=== PATIENT | female | born 1975 | race Caucasian/White ===

== ENCOUNTER 2018-11-29 12:07 | Emergency (ER) | payer MEDICAID ==
[~2018-11-29] VITALS: Ht 162.6 cm; Wt 83.2 kg
[2018-11-29 12:11] VITALS: Ht 162.6 cm; Wt 83.2 kg
[2018-11-29] MEDS ORDERED: TRAZODONE HCL150 MG PO (12:12)
[2018-11-29] MEDS ORDERED: ALBUTEROL SULF8.5 GM INH (12:13)
[2018-11-29] MEDS ORDERED: CYCLOBENZAPRINE10 MG PO (12:13)
[2018-11-29] MEDS ORDERED: LITHIUM CARBON300 MG PO (12:13)
[2018-11-29 12:35] LABS: BASOPHILS 0.3 % (0-2); EOSINOPHILS 0.7 % (0-7); HEMATOCRIT 37.7 % (36.0-48.0); HEMOGLOBIN 12.2 g/dL (12-16); IMMATURE GRANULOCYTES 0.1 % (0-5); LYMPHOCYTES 15.2 % (15-50); MCH 27.3 pg (26.0-34.0); MCHC 32.4 g/dL (31.0-37.0); MCV 84.3 fL (80.0-100.0); MEAN PLATELET VOLUME 10.7 fL (7.4-10.4); MONOCYTES 6.2 % (2-11); NEUTROPHILS 77.5 % (40-80); RBC 4.47 10x6/uL (4.00-5.40); RDW 14.1 % (11.5-14.5); WBC 9.9 10x3/uL (4.8-10.8)
[2018-11-29 12:43] LABS: PLATELET COUNT 261 10x3/uL (130-400)
[2018-11-29 12:55] LABS: ALBUMIN 3.9 g/dL (3.4-5.0); ALKALINE PHOSPHATASE 73 U/L (46-116); ALT (SGPT) 37 U/L (10-68); BILIRUBIN - TOTAL 0.29 mg/dL (0.2-1.3); CALC OSMOLALITY 282 mosm/kg (275-300); CALCIUM 8.9 mg/dL (8.5-10.1); CARBON DIOXIDE 26.4 mmol/L (21.0-32.0); CHLORIDE - SERUM 107 mmol/L (98-107); CREATININE - SERUM 1.1 mg/dL (0.6-1.3); GLUCOSE 81 mg/dL (74-106); POTASSIUM - SERUM 4.5 mmol/L (3.5-5.1); PROTEIN - SERUM 7.5 g/dL (6.4-8.2); SODIUM 143 mmol/L (136-145); UREA NITROGEN 11 mg/dL (7-18); eGFR NON AFRICAN AMERICAN 58 mL/min (90-120)
[2018-11-29 13:06] LABS: CKMB 2.5 U/L (0.0-3.6); CREATINE KINASE 249 UL (21-215); TROPONIN-I < 0.017 ng/mL (0.000-0.060)
[2018-11-29 16:42] LABS: CKMB 1.9 U/L (0.0-3.6); CREATINE KINASE 201 UL (21-215); TROPONIN-I < 0.017 ng/mL (0.000-0.060)
[2018-11-29] MEDS ORDERED: STERAPRED 5MG 65 M1 PO (17:13)
[2018-11-29 18:58] VITALS: BP 132/84
== END 2018-11-29 19:01 | disposition home or self-care (01) ==
LOC: D.ER 12:07
PROVIDERS: Emergency Medicine
DX: M94.0 Chondrocostal junction syndrome [Tietze] (principal)

== ENCOUNTER 2018-11-29 20:39 | Emergency (ER) | payer MEDICAID ==
[~2018-11-29 20:39] MED LIST: ALBUTEROL SULF8.5 GM INH; CYCLOBENZAPRINE10 MG PO; LITHIUM CARBON300 MG PO; STERAPRED 5MG 65 M1 PO; TRAZODONE HCL150 MG PO
[2018-11-29 20:50] VITALS: BMI 33.2
--- NOTE | 2018-11-29 21:07 | NUR ---
DR ELLIOTT NOTIFIED OF SUICIDE ASSESSMENT RESULTS. PATIENT IS A LOW RISK FOR SUICIDE. RESOURCES GIVEN TO PATIENT AND REVIEWED. PATIENT VERBALIZES UNDERSTANDING.
[2018-11-29 21:10] LABS: APPEARANCE CLEAR (CLEAR); COLOR YELLOW (YELLOW)
[2018-11-29 21:11] LABS: BILIRUBIN NEGATIVE (NEGATIVE); GLUCOSE NEGATIVE (NEGATIVE); KETONE SMALL mg/dL (NEGATIVE); NITRITE NEGATIVE (NEGATIVE); PROTEIN TRACE mg/dL (NEGATIVE); UDS - AMPHET NEGATIVE QUAL (NEGATIVE); UDS - BARB NEGATIVE QUAL (NEGATIVE); UDS - BENZO NEGATIVE QUAL (NEGATIVE); UDS - COCAINE NEGATIVE QUAL (NEGATIVE); UDS - OPIATE NEGATIVE QUAL (NEGATIVE); UDS - PCP NEGATIVE QUAL (NEGATIVE); UDS - THC NEGATIVE QUAL (NEGATIVE); UROBILINOGEN NORMAL (NORMAL)
[2018-11-29 21:13] LABS: RED CELLS - URINE 0-5 /hpf (0-5); WHITE CELLS - URINE 0-5 /hpf (0-5)
[2018-11-29 21:14] LABS: BACTERIA MODERATE /hpf (NONE SEEN); EPITHELIAL CELLS 0-5 /hpf (0-5)
[2018-11-29 21:25] LABS: HCG URINE NEGATIVE (NEGATIVE)
[2018-11-29 21:43] LABS: HEMATOCRIT 40.3 % (36.0-48.0); HEMOGLOBIN 12.8 g/dL (12-16); MCH 27.3 pg (26.0-34.0); MCHC 31.8 g/dL (31.0-37.0); MCV 85.9 fL (80.0-100.0); MEAN PLATELET VOLUME 11.2 fL (7.4-10.4); PLATELET COUNT 273 10x3/uL (130-400); RBC 4.69 10x6/uL (4.00-5.40); RDW 14.2 % (11.5-14.5)
[2018-11-29 21:50] LABS: ANION GAP 17.2 mmol/L (8-16); BILIRUBIN - TOTAL 0.4 mg/dL (0.2-1.3); CARBON DIOXIDE 25.4 mmol/L (21.0-32.0); CREATININE - SERUM 1.1 mg/dL (0.6-1.3); MAGNESIUM - SERUM 2.1 mg/dL (1.8-2.4); POTASSIUM - SERUM 4.6 mmol/L (3.5-5.1)
[2018-11-29 21:54] LABS: WBC 6.6 10x3/uL (4.8-10.8)
[2018-11-29 22:57] LABS: EOSINOPHILS 1 % (0-7); LYMPHOCYTES 8 % (15-50); MONOCYTES 1 % (2-11); NEUTROPHILS 88 % (40-80); PLATELET ESTIMATE NORMAL
[2018-11-30 02:35] VITALS: BP 114/70
== END 2018-11-30 10:05 ==
LOC: D.ER 20:39
PROVIDERS: Family Medicine
DX: R45.851 Suicidal ideations (principal); F32.9 Major depressive disorder, single episode, unspecified